=== PATIENT | male | born 1985 | race Caucasian/White ===

== ENCOUNTER 2016-12-06 22:44 | Emergency (ER) | payer SELFPAY ==
[2016-12-06 22:51] VITALS: TEMP 98.1; BMI 19.5
[2016-12-06 23:21] LABS: CA OXALATE 1+; LEUKOCYTES/URINE NEG (NEGATIVE); NITRITE/URINE NEG (NEGATIVE); URINE OCCULT BLOOD NEG (NEG/TRACE)
[2016-12-06] MEDS ORDERED: ONDANSETRON HCL 4 MG/2 ML VIAL IV ONE (23:32)
[2016-12-06] MEDS ORDERED: MORPHINE 4 MG/ML INJECTION IV ONE (23:32)
[2016-12-06] MEDS ORDERED: SODIUM CHLORIDE 0.9% 3 ML FLUSH FLUSH PRN (23:32)
[2016-12-06] MEDS ORDERED: NS 1,000 ML IV ONE ×2 (23:32)
[2016-12-06 23:44] LABS: AUTOMATED BASOPHIL 1.1 % (0-2); AUTOMATED EOSINOPHIL 2.8 % (0-5); AUTOMATED NEUTROPHIL 53.1 % (45-76); MPV 8.1 fL (7.4-10.4)
[2016-12-06 23:51] LABS: ALL NEG? YES; MDMA* NEG (NEGATIVE); METHAMPHETAMINES NEG (NEGATIVE); OXYCODONE NEG (NEGATIVE)
--- NOTE | 2016-12-06 23:51 | EDPRACDOC ---
- General Information Chief Complaint: Abdominal Pain Stated Complaint: ABD PAIN Time Seen by Provider: 12/06/16 23:31 Information Source: Patient Mode Of Arrival: Car Home Medications: Home Medications Dicyclomine HCl [Bentyl] 20 mg PO Q6H #14 tab 12/07/16 Hydrocortisone [Anusol Hc] 25 mg NE BID #14 supp 12/07/16 Pantoprazole Sodium [Protonix] 40 mg PO DAILY #30 tab 12/07/16 Allergies/Adverse Reactions: Allergies Allergy/AdvReac Type Severity Reaction Status Date / Time Penicillins Allergy Severe Rash-Genera Verified 05/24/16 15:35 lized onion Allergy Unknown Verified 05/24/16 15:35 MOSQUITOS Allergy Unknown Uncoded 05/24/16 15:35 - History of Present Illness Onset: 1 month HPI: PT PRESENTS TO ED WITH 1 MONTH OF INTERMITTENT RECTAL BLEEDING AND HEMATURIA AND INTERMITTENT ABD PAIN THAT GOES FROM LEFT SIDE TO RIGHT SIDE AND FEELS LIKE A SHARP PAIN THAT IS TWISTING. NO N/V/D. Pain Location: Reports: Flank (LT FLANK TO RIGHT FLANK) Pain Context: Reports: Spontaneous Pain Severity: Moderate Pain Quality: Reports: Sharp, Stabbing Pain Radiation: Reports: No Radiation Modifying Factors: improves with: Nothing Associated Signs & Symptoms: Reports: Other (INTERMITTENT RECTAL BLEEDING, INTERMITTENT HEMATURIA) Oral Intake: Normal Urinary Output: Normal ED Past Medical History - History Reviewed Yes Nurses notes reviewed and agree except as marked Travel Outside of [place] in the Last 3 Months?: No No Past Medical History: Yes Patient has no past medical history - Patient Medical History Psychological History: Denies: Depression - Social Medical History Smoking Status: Heavy tobacco smoker (5 or more cigarettes/day or daily pipe/ cigar) ETOH: None Substance Abuse: None Lives With: Other Lives In: Home EDM Review of Systems - Review of Systems ROS Negative Except as Marked: Yes All systems reviewed and were negative except as marked Constitutional: No Symptoms Reported. negative: Fever, Chills, Weakness, Fatigue, Loss of Appetite Eyes: No Symptoms Reported. negative: Redness, Blurred Vision, Double Vision, Discharge, Pain, Light Sensitive, Photophobia Ears: No Symptoms Reported. negative: Pain, Hearing Loss, Drainage, Ear Pulling Throat: No Symptoms Reported. negative: Pain, Swelling Nose: No Symptoms Reported. negative: Congestion, Bleeding, Discharge, Injection, Swelling, Deformity, Ecchymosis, Tender, Abrasion, Laceration Mouth: No Symptoms Reported. negative: Pain, Drooling Respiratory: No Symptoms Reported. negative: Cough, Brassy Cough, Barky Cough, Shortness of Breath, Wheezing, Hemoptysis Cardiovascular: No Symptoms Reported. negative: Chest Pain, Palpitations, Syncope, Edema, Orthopnea, PND, Skin Mottling, Cyanosis Gastrointestinal: Pain, Other (BRIGHT RED DARK RED AND ORANGE PT STATES HAPPENS MOST OFTEN WITH BOWEL MOVEMENT). negative: Constipation, Diarrhea, Formula Intolerance, Melena, Nausea, Vomiting Genitourinary: Hematuria (INTERMITTENT). negative: Bleeding, Dysuria, Discharge , Frequency, , Testicular Pain Neurological: No Symptoms Reported. negative: Headache, Dizziness, Seizure, Numbness, Weakness, Speech Difficulty, Gait Difficulty Musculoskeletal: No Symptoms Reported. negative: Neck, Chestwall, Ribs, Back, Shoulder, Arm, Elbow, Forearm, Wrist, Hand, Pelvis, Hip, Femur, Knee, Leg, Ankle , Foot Integumentary: No Symptoms Reported. negative: Itching, Rash, Bruising, Wound Allergic/Immunologic: No Symptoms Reported. negative: Hives, Itching Hematologic: No Symptoms Reported. negative: Lymphadenopathy, Easy Bruising, Easy Bleeding Endocrine: No Symptoms Reported. negative: Weight Gain, Weight Loss Psychiatric: No Symptoms Reported. negative: Anxiety, Depression, Hallucinations, Insomnia, Suicidal - Physical Exam Constitutional: No apparent distress, Alert (Awake) Oriented to: Time, Person, Place Last recorded Vital Signs: Last Vital Signs Temp 98.1 F 12/06/16 22:45 Pulse 60 12/07/16 00:27 Resp 18 12/07/16 00:27 BP 123/76 12/07/16 00:27 Pulse Ox 96 12/07/16 00:27 Oxygen Pulse Oxygen Saturation 96 O2 Device Room Air Oxygen Flow Rate Fraction of Inspired Oxygen ( FIO2) - HEENT Head: Normal ( normocephalic) Eye Exam: Normal (PERRL, EOMI, Sclera white) Oropharynx: Normal (Pharynx:Moist without exudate,Gums-no swelling) Tympanic Membrane: Normal ENT EAC: Normal TMJ: Normal Nose: No Symptoms Reported (septum midline) Neck: Normal (FROM, trachea at midline) - Respiratory/Cardiovascular Respiratory: Normal - CTA (BBS clear to auscultation without adventitious sounds ) Cardiovascular: Normal (RRR without murmur, gallop or rub) - GI Auscultation: Normal (NABS) Palpation: Normal (Soft,No rebound or guarding, non distended) Tenderness: Non tender Bhandari's Sign: Negative Rectal Exam: Heme negative stool - Bladder: Normal - Musculoskeletal Back: Normal (Non-Tender) Extremities: Normal (Normal tone, Pulses 2+ No cyanosis or edema, FROM) - Integumentary Skin: Normal, Warm, Dry Lymphatics: Normal (no adenopathy) - Neurologic Memory Impaired: Normal Motor Function: Normal (Normal tone, Pulses 2+ No cyanosis or edema, FROM) Cranial Nerve: Normal (CN II-X11 intact sensation, strength 5/5) Cerebellar: Normal Mood Description: Normal Perception: Normal - Differential Diagnosis Constipation, Pancreatitis, PUD, Urolithiasis, Other (GASTRITIS) - Results 12/06/16 23:10 12/06/16 23:10 WBC 8.5 xk/uL (3.8-10.8) 12/06/16 23:10 RBC 5.53 xM/uL (4.70-6.10) 12/06/16 23:10 Hgb 15.9 g/dL (14.0-18.0) 12/06/16 23:10 Hct 46.8 % (42-52) 12/06/16 23:10 MCV 85 fL (80-94) 12/06/16 23:10 MCH 28.7 pg (27-32) 12/06/16 23:10 MCHC 34.0 g/dl (33-36) 12/06/16 23:10 RDW 14.6 % (11.5-14.5) H 12/06/16 23:10 Plt Count 196 xk/uL (130-400) 12/06/16 23:10 MPV 8.1 fL (7.4-10.4) 12/06/16 23:10 Neut % (Auto) 53.1 % (45-76) 12/06/16 23:10 Lymph % (Auto) 33.0 % (17-44) 12/06/16 23:10 Bee % (Auto) 10.0 % (3-10) 12/06/16 23:10 Eos % (Auto) 2.8 % (0-5) 12/06/16 23:10 Baso % (Auto) 1.1 % (0-2) 12/06/16 23:10 Absolute Neuts (auto) 4.51 xk/uL (1.7-8.2) 12/06/16 23:10 Absolute Lymphs (auto) 2.81 xk/uL (0.65-4.75) 12/06/16 23:10 Sodium 139 mEq/L (137-146) 12/06/16 23:10 Potassium 4.1 mEq/L (3.5-5.1) 12/06/16 23:10 Chloride 104 mEq/L (98-107) 12/06/16 23:10 Carbon Dioxide 26 mMOL/L (22-33) 12/06/16 23:10 Anion Gap 13 mEq/L (8-16) 12/06/16 23:10 BUN 14 MG/DL (9-20) 12/06/16 23:10 Creatinine 0.70 MG/DL (0.66-1.25) 12/06/16 23:10 Estimated GFR (MDRD) > 60 mL/min (>=60) 12/06/16 23:10 Glucose 81 MG/DL (70-99) 12/06/16 23:10 Calculated Osmolality 268 MOs/Kg (270-290) L 12/06/16 23:10 Calcium 9.2 MG/DL (8.4-10.2) 12/06/16 23:10 Total Bilirubin 0.4 MG/DL (0.2-1.3) 12/06/16 23:10 AST 22 IU/L (17-59) 12/06/16 23:10 ALT 27 IU/L (21-72) 12/06/16 23:10 Alkaline Phosphatase 57 IU/L (38-126) 12/06/16 23:10 Total Protein 7.2 G/DL (6.3-8.2) 12/06/16 23:10 Albumin 4.5 G/DL (3.5-5.0) 12/06/16 23:10 Lipase 137 U/L (23-300) 12/06/16 23:10 Urine Color Yellow 12/06/16 20:51 Urine Clarity Clear 12/06/16 20:51 Urine pH 5.0 (5.0-8.0) 12/06/16 20:51 Ur Specific [place] 1.015 (1.003-1.035) 12/06/16 20:51 Urine Protein Neg (NEG/TRACE) 12/06/16 20:51 Urine Glucose (UA) Neg (NEGATIVE) 12/06/16 20:51 Urine Ketones Neg (NEGATIVE) 12/06/16 20:51 Urine Occult Blood Neg (NEG/TRACE) 12/06/16 20:51 Urine Nitrite Neg (NEGATIVE) 12/06/16 20:51 Urine Bilirubin Neg (NEGATIVE) 12/06/16 20:51 Urine Urobilinogen <2.0 MG/DL (0-1) 12/06/16 20:51 Ur Leukocyte Esterase Neg (NEGATIVE) 12/06/16 20:51 Calcium Oxalate Crystal 1+ 12/06/16 20:51 Urine Mucus Mod (NEG/OCC) H 12/06/16 20:51 Urine Opiates Screen Neg (NEGATIVE) 12/06/16 20:51 Ur Oxycodone Screen Neg (NEGATIVE) 12/06/16 20:51 Urine Methadone Screen Neg (NEGATIVE) 12/06/16 20:51 Ur Barbiturates Screen Neg (NEGATIVE) 12/06/16 20:51 Ur Tricyclics Screen Neg (NEGATIVE) 12/06/16 20:51 Ur Phencyclidine Scrn Neg (NEGATIVE) 12/06/16 20:51 Ur Amphetamines Screen Neg (NEGATIVE) 12/06/16 20:51 U Methamphetamines Scrn Neg (NEGATIVE) 12/06/16 20:51 Urine MDMA Screen Neg (NEGATIVE) 12/06/16 20:51 U Benzodiazepines Scrn Neg (NEGATIVE) 12/06/16 20:51 Urine Cocaine Screen Neg (NEGATIVE) 12/06/16 20:51 Ur THC Screen Neg (NEGATIVE) 12/06/16 20:51 Lab Results 12/06/16 12/06/16 12/06/16 23:10 23:10 23:10 WBC 8.5 RBC 5.53 Hgb 15.9 Hct 46.8 MCV 85 MCH 28.7 MCHC 34.0 RDW 14.6 H Plt Count 196 MPV 8.1 Neut % (Auto) 53.1 Lymph % (Auto) 33.0 Bee % (Auto) 10.0 Eos % (Auto) 2.8 Baso % (Auto) 1.1 Absolute Neuts (auto) 4.51 Absolute Lymphs (auto) 2.81 Sodium 139 Potassium 4.1 Chloride 104 Carbon Dioxide 26 Anion Gap 13 BUN 14 Creatinine 0.70 Estimated GFR (MDRD) > 60 Glucose 81 Calculated Osmolality 268 L Calcium 9.2 Total Bilirubin 0.4 AST 22 ALT 27 Alkaline Phosphatase 57 Total Protein 7.2 Albumin 4.5 Lipase 137 Urine Color Urine Clarity Urine pH Ur Specific [place] Urine Protein Urine Glucose (UA) Urine Ketones Urine Occult Blood Urine Nitrite Urine Bilirubin Urine Urobilinogen Ur Leukocyte Esterase Calcium Oxalate Crystal Urine Mucus Urine Opiates Screen Ur Oxycodone Screen Urine Methadone Screen Ur Barbiturates Screen Ur Tricyclics Screen Ur Phencyclidine Scrn Ur Amphetamines Screen U Methamphetamines Scrn Urine MDMA Screen U Benzodiazepines Scrn Urine Cocaine Screen Ur THC Screen 12/06/16 12/06/16 20:51 20:51 WBC RBC Hgb Hct MCV MCH MCHC RDW Plt Count MPV Neut % (Auto) Lymph % (Auto) Bee % (Auto) Eos % (Auto) Baso % (Auto) Absolute Neuts (auto) Absolute Lymphs (auto) Sodium Potassium Chloride Carbon Dioxide Anion Gap BUN Creatinine Estimated GFR (MDRD) Glucose Calculated Osmolality Calcium Total Bilirubin AST ALT Alkaline Phosphatase Total Protein Albumin Lipase Urine Color Yellow Urine Clarity Clear Urine pH 5.0 Ur Specific [place] 1.015 Urine Protein Neg Urine Glucose (UA) Neg Urine Ketones Neg Urine Occult Blood Neg Urine Nitrite Neg Urine Bilirubin Neg Urine Urobilinogen <2.0 Ur Leukocyte Esterase Neg Calcium Oxalate Crystal 1+ Urine Mucus Mod H Urine Opiates Screen Neg Ur Oxycodone Screen Neg Urine Methadone Screen Neg Ur Barbiturates Screen Neg Ur Tricyclics Screen Neg Ur Phencyclidine Scrn Neg Ur Amphetamines Screen Neg U Methamphetamines Scrn Neg Urine MDMA Screen Neg U Benzodiazepines Scrn Neg Urine Cocaine Screen Neg Ur THC Screen Neg - Diagnostic Imaging CT URO Image interpreted by: Radiologist 12/07/16 01:30 IMPRESSION: No renal stones or obstructive uropathy. No acute abnormality in the abdomen/pelvis, allowing for limitations secondary to lack of contrast and paucity of intra-abdominal fat. Decision Time to Discharge: 01:30 - Departure Disposition: Home Final Diagnosis: Abdominal pain, INTERMITTENT HEMATURIA, INTERMITTENT RECTAL BLEEDING Instructions: Acute Abdominal Pain (ED) Education/Counseling Given To: Patient Education/Counseling Given Regarding: Diagnosis, Treatment, Prognosis, Follow Up Referrals: None,No Provider [Primary Care Provider] - One Week Gutierrez Fleming MD [Staff Provider No Admit] - One Week Prescriptions: Dicyclomine HCl [Bentyl] 20 mg PO Q6H #14 tab Hydrocortisone [Anusol Hc] 25 mg NE BID #14 supp Pantoprazole Sodium [Protonix] 40 mg PO DAILY #30 tab Additional Instructions: PLEASE FOLLOW UP WE DISCUSSED. RETURN FOR WORSE OR DIFFERENT SYMPTOMS.
[2016-12-06 23:57] LABS: BLOOD UREA NITROGEN 14 MG/DL (9-20); CALCIUM 9.2 MG/DL (8.4-10.2); CALCULATED OSMOLALITY 268 MOs/Kg (270-290); CHLORIDE 104 mEq/L (98-107); GLUCOSE 81 MG/DL (70-99); SODIUM LEVEL 139 mEq/L (137-146); TOTAL PROTEIN 7.2 G/DL (6.3-8.2)
--- NOTE | 2016-12-07 01:25 | DIRPT ---
CLINICAL DATA: Bilateral flank pain and hematuria, nausea and diarrhea. Intermittent symptoms for 1 month EXAM: CT ABDOMEN AND PELVIS WITHOUT CONTRAST TECHNIQUE: Multidetector CT imaging of the abdomen and pelvis was performed following the standard protocol without IV contrast. COMPARISON: None. FINDINGS: Lower chest: The included lung bases are clear. Liver: No focal lesion allowing for lack contrast. Hepatobiliary: Gallbladder physiologically distended, no calcified stone. No biliary dilatation. Pancreas: No evidence inflammation, suboptimally defined due to lack of contrast and paucity of intra-abdominal fat. Spleen: Normal. Adrenal glands: No nodule. Kidneys: Symmetric in size without stones or hydronephrosis. There is no perinephric stranding. Both ureters are decompressed without stones along the course. Stomach/Bowel: Bowel evaluation limited given lack of contrast and paucity of intra-abdominal fat. No gastric distension. Minimal ingested contents in the distal stomach and duodenum no small bowel dilatation. Moderate volume of stool throughout the colon without colonic wall thickening or inflammation. The appendix is normal. Vascular/Lymphatic: No evidence of retroperitoneal adenopathy, lack of contrast limits evaluation. Abdominal aorta is normal in caliber. Reproductive: Prostate gland normal in size. Bladder: Decompressed, not well evaluated. No bladder stone. Other: No free air, free fluid, or intra-abdominal fluid collection. Musculoskeletal: There are no acute or suspicious osseous abnormalities. Scattered bone islands in the pelvis. IMPRESSION: No renal stones or obstructive uropathy. No acute abnormality in the abdomen/pelvis, allowing for limitations secondary to lack of contrast and paucity of intra-abdominal fat. Electronically Signed By: Nina Soriano M.D. On: 12/07/2016 01:22
[2016-12-07 01:45] VITALS: BP 107/68; PULSE 72
[2016-12-07] MEDS ORDERED: SODIUM CHLORIDE 0.9% 3 ML FLUSH FLUSH SCH (06:00)
== END 2016-12-07 01:43 | disposition home or self-care (01) ==
LOC: ED 22:44
DX: R31.9 Hematuria, unspecified (principal); K62.5 Hemorrhage of anus and rectum; R10.9 Unspecified abdominal pain
CPT/HCPCS: 36415; 74176; 80053; 80307; 81001; 82270; 83690; 85025; 96361; 96374; 96375; 99284; J2270; J2405